=== PATIENT | female | born 1965 | race Caucasian/White ===

== ENCOUNTER 2018-10-27 12:36 | Emergency (ER) | payer MEDICARE, MEDICAID ==
[~2018-10-27] VITALS: Ht 175.3 cm; Wt 100.0 kg
[2018-10-27 16:05] LABS: CLARITY,URINE CLOUDY (Clear); COLOR,URINE AMBER (Yellow); GLUCOSE, URINE NEGATIVE (Neg); KETONES,URINE TRACE mg/dl (Neg); LEUKOCYTE ESTERASE ,URINE SMALL (Neg); NITRITES, URINE POSITIVE (Neg); OCCULT BLOOD,URINE LARGE (Neg); PROTEIN,URINE 100 mg/dl (Neg)
[2018-10-27 16:07] LABS: UA COLLECTION TYPE VOIDED
[2018-10-27 16:11] LABS: BACTERIA,URINE 1+ /HPF (Neg); MUCUS STRANDS NONE SEEN /LPF (Neg); RBC,URINE TNTC /HPF (0-2); SQUAMOUS EPITHELIAL CELL,UR NONE SEEN /LPF (FEW); WBC,URINE 20-30 /HPF (0-4)
[2018-10-27 16:27] LABS: BASOPHILS # (AUTO) 0.1 X10'3 (0-0.2); BASOPHILS % (AUTO) 0.4 % (0-1); EOSINOPHILS # (AUTO) 0.1 X10'3 (0-0.9); EOSINOPHILS % (AUTO) 0.9 % (0-6); HEMATOCRIT 46.3 % (35.0-45.0); HEMOGLOBIN 14.9 g/dl (12.0-16.0); LYMPHOCYTES # (AUTO) 4.4 X10'3 (1.1-4.8); LYMPHOCYTES % (AUTO) 31.1 % (21-51); MEAN CORPUSCULAR HEMOGLOBIN 30.5 PG (27.0-31.0); MEAN CORPUSCULAR HGB CONC 32.1 g/dL (33.0-36.5); MEAN CORPUSCULAR VOLUME 95.3 FL (78-98); MEAN PLATELET VOLUME 7.3 FL (7.4-10.4); MONOCYTES # (AUTO) 0.7 X10'3 (0-0.9); NEUTROPHILS # (AUTO) 8.8 X10'3 (1.8-7.7); NEUTROPHILS % (AUTO) 62.6 % (42-75); PLATELET COUNT 415 X10'3 (140-440); RED BLOOD COUNT 4.86 X10'6 (4.20-5.60); WHITE BLOOD COUNT 14.1 X10'3 (4.5-11.0)
[2018-10-27] MEDS ORDERED: NITR100C PO (16:32)
[2018-10-27 16:43] LABS: ALANINE AMINOTRANSFERASE 32 U/L (12-78); ALBUMIN 3.7 G/DL (3.4-5.0); ALBUMIN/GLOBULIN RATIO 0.9 (1.1-1.5); ALKALINE PHOSPHATASE 119 IU/L (46-116); ANION GAP 14 (8-16); ASPARTATE AMINO TRANSFERASE 27 U/L (10-37); BILIRUBIN,TOTAL 0.5 MG/DL (0.1-1.0); BLOOD UREA NITROGEN 14 MG/DL (7-18); BUN/CREATININE RATIO 20.9 (6.6-38.0); CALCIUM 9.4 MG/DL (8.5-10.1); CHLORIDE 101 MMOL/L (99-107); CREATININE 0.67 MG/DL (0.40-0.90); GLUCOSE 115 MG/DL (70-104); POTASSIUM 3.8 MMOL/L (3.5-5.1); SODIUM 139 MMOL/L (135-145); TOTAL CARBON DIOXIDE 24.4 MMOL/L (24-32); TOTAL PROTEIN 7.6 G/DL (6.4-8.2); eGFR > 90 ML/MIN
[2018-10-27 16:59] VITALS: BP 141/93
== END 2018-10-27 17:00 | disposition home or self-care (01) ==
LOC: ER 12:37
DX: S30.1XXA Contusion of abdominal wall, initial encounter (principal); S20.212A Contusion of left front wall of thorax, initial encounter; S00.12XA Contusion of left eyelid and periocular area, initial encounter; N39.0 Urinary tract infection, site not specified; R31.9 Hematuria, unspecified; Z90.710 Acquired absence of both cervix and uterus; Z88.0 Allergy status to penicillin; Z95.1 Presence of aortocoronary bypass graft; Z91.030 Bee allergy status; Z79.899 Other long term (current) drug therapy; Y04.8XXA Assault by other bodily force, initial encounter; Y93.89 Activity, other specified; Y92.89 Other specified places as the place of occurrence of the external cause; Y99.8 Other external cause status
CPT/HCPCS: 36415; 80053; 81001; 85025; 87077; 87088; 87186; 99283

== ENCOUNTER 2022-01-17 22:34 | Emergency (ER) | payer MEDICARE, MEDICAID ==
[~2022-01-17] VITALS: Ht 180.3 cm; Wt 111.8 kg
[~2022-01-17 22:34] MED LIST: NITR100C PO
[2022-01-17 23:13] LABS: MEAN PLATELET VOLUME 6.7 FL (7.4-10.4); MONOCYTES # (AUTO) 0.5 X10'3 (0-0.9); MONOCYTES % (AUTO) 6.2 % (2-12)
[2022-01-17 23:15] LABS: BASOPHILS # (AUTO) 0.1 X10'3 (0-0.2); BASOPHILS % (AUTO) 0.6 % (0-1); EOSINOPHILS # (AUTO) 0.2 X10'3 (0-0.9); EOSINOPHILS % (AUTO) 3.1 % (0-6); HEMATOCRIT 34.8 % (35.0-45.0); HEMOGLOBIN 11.2 g/dl (12.0-16.0); LYMPHOCYTES # (AUTO) 4.1 X10'3 (1.1-4.8); LYMPHOCYTES % (AUTO) 52.3 % (21-51); MEAN CORPUSCULAR HEMOGLOBIN 28.1 PG (27.0-31.0); MEAN CORPUSCULAR HGB CONC 32.1 g/dL (33.0-36.5); MEAN CORPUSCULAR VOLUME 87.7 FL (78-98); NEUTROPHILS % (AUTO) 37.8 % (42-75); PLATELET COUNT 372 X10'3 (140-440); RED BLOOD COUNT 3.96 X10'6 (4.20-5.60); RED CELL DISTRIBUTION WIDTH 18.2 % (11.5-14.5); WHITE BLOOD COUNT 7.9 X10'3 (4.5-11.0)
[2022-01-17 23:32] LABS: ALANINE AMINOTRANSFERASE 41 U/L (12-78); ALBUMIN 3.2 G/DL (3.4-5.0); ALBUMIN/GLOBULIN RATIO 0.7 (1.1-1.5); ALKALINE PHOSPHATASE 128 IU/L (46-116); ANION GAP 10 (8-16); ASPARTATE AMINO TRANSFERASE 47 U/L (10-37); BILIRUBIN,TOTAL 0.1 MG/DL (0.1-1.0); BLOOD UREA NITROGEN 9 MG/DL (7-18); BUN/CREATININE RATIO 15.8 (6.6-38.0); CALCIUM 8.3 MG/DL (8.5-10.1); CHLORIDE 106 MMOL/L (99-107); CREATININE 0.57 MG/DL (0.40-0.90); ETHANOL 0.159 GM/DL (0.0-0.010); GLUCOSE 151 MG/DL (70-104); POTASSIUM 3.7 MMOL/L (3.5-5.1); SODIUM 140 MMOL/L (135-145); TOTAL CARBON DIOXIDE 24.2 MMOL/L (24-32); TOTAL PROTEIN 7.5 G/DL (6.4-8.2); eGFR > 90 ML/MIN
[2022-01-18 00:16] LABS: ANISOCYTOSIS 2+; PLATELET ESTIMATE NORMAL
[2022-01-18 00:28] LABS: TOTAL CELLS COUNTED 100
--- NOTE | 2022-01-18 01:05 | NUR ---
PT GIVEN PHONE TO CALL TO CHECK ON DAUGHTER. DAUGHTER STATES THAT SHE IS FINE
[2022-01-18 01:35] LABS: URINE AMPHETAMINE SCREEN NEGATIVE (Neg); URINE BARBITUATE SCREEN NEGATIVE (Neg); URINE BENZODIAZEPINES SCREEN NEGATIVE (Neg); URINE CANNABINOID SCREEN POSITIVE (Neg); URINE COCAINE SCREEN NEGATIVE (Neg); URINE METHADONE SCREEN NEGATIVE (Neg); URINE OPIATE SCREEN NEGATIVE (Neg); URINE PHENCYCLIDINE SCREEN NEGATIVE (Neg)
--- NOTE | 2022-01-18 02:15 | NUR ---
PT WALKED TO RESTROOM AND BACK TO ROOM
--- NOTE | 2022-01-18 03:30 | NUR ---
PT WALKED TO RESTROOM AND BACK IN ROOM
--- NOTE | 2022-01-18 05:07 | NUR ---
GAVE PT WATER. PT CALM
--- NOTE | 2022-01-18 05:18 | NUR ---
PT WALKED TO RESTROOM
[2022-01-18] MEDS ORDERED: MONT10TA21 PO (06:32)
[2022-01-18] MEDS ORDERED: TRAZ-251 PO (06:32)
[2022-01-18] MEDS ORDERED: EST1T PO (06:32)
[2022-01-18] MEDS ORDERED: TRAM50TA2 PO (06:32)
[2022-01-18] MEDS ORDERED: CITA20TA28 PO (06:32)
[2022-01-18] MEDS ORDERED: CETI10TA15 PO (06:32)
--- NOTE | 2022-01-18 07:50 | NUR ---
Pt awake and tearful. Upset that she asked for coffee hours ago and never got any. Concerned about the diabetic ulcer on her foot (bandage clean, dry and intact), diabetic and hungry.
--- NOTE | 2022-01-18 07:57 | NUR ---
Safe tray carb controlled diet ordered.
--- NOTE | 2022-01-18 09:26 | NUR ---
Breakfast to bedside. Pt states she doesn't take pills or insulin- is diet controlled Diabetic. Asking for morning meds. notified.
--- NOTE | 2022-01-18 09:27 | NUR ---
Pt calm and cooperative, no issues.
--- NOTE | 2022-01-18 10:05 | NUR ---
Patient ambulated to bed #26 from the main ER. Pt was tearful stating "I don't even know why I am here." "They are tring to find my medication."
[2022-01-18] MEDS: citalopram 20mg tablet PO SCH (10:43)
[2022-01-18] MEDS: cetirizine 10mg tablet PO SCH (10:43)
[2022-01-18] MEDS: montelukast 10mg tablet PO SCH (10:43)
[2022-01-18] MEDS: estradiol 1mg tablet PO SCH (10:43)
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
--- NOTE | 2022-01-18 11:49 | NUR ---
Spoke with Leonela at Dr. Nunez. Pt's right foot dressing is to be changed at least QOD. They use acti coat and prophor. She will fax over order. Placed order for wound consultation. Dr. Cunningham notified.
--- NOTE | 2022-01-18 12:31 | NUR ---
RECEIVED ORDER FROM DR RIGGS'S OFFICE. PLACED ORDERS IN CHART.
--- NOTE | 2022-01-18 12:31 | NUR ---
Left message with Wound care.
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
--- NOTE | 2022-01-18 15:02 | NUR ---
Lacy sim in [facility] - 01/18/22 at 1503 by PATRICIA SPOKE WITH OUTPATIENT WOUND CARE CLINIC, INPATIENT WOUND CARE NURSE WILL BE ABLE TO SEE PATIENT TOMORROW 5*/1
--- NOTE | 2022-01-18 15:04 | NUR ---
SPOKE WITH OUTPATIENT WOUND CARE CLINIC, INPATIENT WOUND CARE NURSE WILL BE ABLE TO SEE PATIENT TOMORROW 01/19.
--- NOTE | 2022-01-18 15:30 | NUR ---
Pt was able to call her daughter. Pt said she thought she wasn't able to use a phone "talking to her was a game changer for me." Pt presents a little brighter.
--- NOTE | 2022-01-18 20:01 | NUR ---
Pt lying in bed supine with eyes open. Denies any needs at this time. Bed in lowest position.
[2022-01-18] MEDS: traZODone 50mg tablet PO SCH (20:09)
[2022-01-18] MEDS: nitrofurantoin macrocrystal 100mg capsule PO SCH (20:10)
[2022-01-18] MEDS ORDERED: traMADol 50MG tablet PO ONE (21:00)
--- NOTE | 2022-01-18 21:02 | NUR ---
Pt lying in semi-romero's position in bed with eyes open. Respirations 17. Bed in lowest position.
--- NOTE | 2022-01-18 23:09 | NUR ---
Pt turned to right lateral side with eyes closed. Respirations 16. Bed in lowest position.
--- NOTE | 2022-01-19 01:07 | NUR ---
Pt turned to right lateral side with eyes closed, appears to be sleeping. Respirations 14. Bed in lowest position. No acute distress noted.
--- NOTE | 2022-01-19 03:03 | NUR ---
Pt turned to left lateral side with eyes closed, appears to be sleeping. Respirations 13 and snoring noted. No distress apparent.
--- NOTE | 2022-01-19 05:04 | NUR ---
Pt turned to left lateral side with eyes closed, pt appears to be sleeping. Respirations 14 and unlabored. Bed in lowest position.
[2022-01-19] MEDS: cetirizine 10mg tablet PO SCH (07:39)
[2022-01-19] MEDS: montelukast 10mg tablet PO SCH (07:39)
[2022-01-19] MEDS: citalopram 20mg tablet PO SCH (07:39)
[2022-01-19] MEDS: estradiol 1mg tablet PO SCH (07:39)
[2022-01-19] MEDS: nitrofurantoin macrocrystal 100mg capsule PO SCH ×2 (07:39→19:56)
--- NOTE | 2022-01-19 08:09 | NUR ---
pt awake and up to bathroom. morning medications given without issue. pt denies any SI/SH/HI/AVH and reports feeling "good" today as pt spoke with her daugher and feels reassured that "everything is working out. we have a plan." pt aware that wound care should be following up with her today for the wound on her left foot. pt denies any anxiety or depression at this time. pt has calm, cooperative affect and is pleasant during conversation. pt appears hopeful and content at this time
--- NOTE | 2022-01-19 10:49 | NUR ---
pt up to bathroom with standby assistance. pt then returned back to bed without issue and is now laying down "to rest"
--- NOTE | 2022-01-19 10:50 | NUR ---
pt sitting in bed reading. called wound care who states they plan to see her later today for the wound on her foot. pt updated. no concerns at this time
--- NOTE | 2022-01-19 16:20 | NUR ---
wound care at bedside evaluating pt foot. communication technician called for a pressure boot and bill from ortho will be here in morning to provide boot for patient.
--- NOTE | 2022-01-19 16:42 | NUR ---
WOC: Wound care was asked to see patient regarding wound to left foot. Patient see's a field pipelines supervisor on the outpatient setting for wound care. See WOC assessment in interventions on chart for full assessment. Nursing to do dressing changes QOD, supplies given to nursing (acticoat) RECOMMEND: 1. Daily bathing with no rinse skin cleanser. 2. Cream/Lotion to be applied to skin after bathing. 3. Marcia care Q shift and prn soiling followed by with Barrier Cream. 4. Turn patient Q 1-2 hrs and reposition with pillows. 5. Float heels to offload pressure. 6. Wound care to left plantar foot. Clean with saline, apply piece of acticot to wound bed, cover with gauze, and then kerlix roll. Secure with medipore tape. Dressings to be changed by nursing QOD. Patient needs to follow up with her doctor when discharged.
--- NOTE | 2022-01-19 18:41 | NUR ---
Pt sitting up in bed reading book. Pt denies any needs at this time. Bed in lowest position.
[2022-01-19] MEDS: traZODone 50mg tablet PO SCH (19:56)
--- NOTE | 2022-01-19 20:10 | NUR ---
Patient sitting up in bed, RN administered PM medications. Patient tolerated well. Pt denies further needs. Bed in lowest position.
--- NOTE | 2022-01-19 22:05 | NUR ---
Pt turned to left lateral side with eyes closed, appears to be sleeping. Respirations 15. Bed in lowest position.
--- NOTE | 2022-01-20 00:49 | NUR ---
Pt turned to left lateral side with eyes closed, appears to be sleeping. Respirations 15. Bed in lowest position and bedside table within reach.
--- NOTE | 2022-01-20 02:40 | NUR ---
Pt sitting up in bed reading book. RN provided ice water. Pt denies further needs.
--- NOTE | 2022-01-20 04:12 | NUR ---
Pt turned to left lateral side, appears to be sleeping. Respirations 14.
[2022-01-20] MEDS: nitrofurantoin macrocrystal 100mg capsule PO SCH ×2 (08:00→20:14)
[2022-01-20] MEDS: estradiol 1mg tablet PO SCH (08:59)
[2022-01-20] MEDS: montelukast 10mg tablet PO SCH (08:59)
[2022-01-20] MEDS: cetirizine 10mg tablet PO SCH (08:59)
[2022-01-20] MEDS: citalopram 20mg tablet PO SCH (08:59)
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
[2022-01-20] MEDS: traZODone 50mg tablet PO SCH (20:14)
--- NOTE | 2022-01-20 22:03 | NUR ---
Pt sitting up in bed reading.
--- NOTE | 2022-01-21 00:06 | NUR ---
Pt appears to be sleeping.
--- NOTE | 2022-01-21 02:07 | NUR ---
Pt appears to be sleeping.
--- NOTE | 2022-01-21 04:41 | NUR ---
Pt up to the BR, fresh water pitcher given.
[2022-01-21 05:44] VITALS: BP 165/89
--- NOTE | 2022-01-21 07:14 | NUR ---
PT SITTING UP AT SIDE OF BED,READING BOOK.
--- NOTE | 2022-01-21 07:57 | NUR ---
PT STILL READING THE BOOK ,CORRINE ANY CONCERN .NO SIGN OF DISTRESS NOTED.
--- NOTE | 2022-01-21 08:19 | NUR ---
eating her breakfast at this time.
[2022-01-21] MEDS: montelukast 10mg tablet PO SCH (08:34)
[2022-01-21] MEDS: estradiol 1mg tablet PO SCH (08:34)
[2022-01-21] MEDS: citalopram 20mg tablet PO SCH (08:34)
[2022-01-21] MEDS: cetirizine 10mg tablet PO SCH (08:34)
[2022-01-21] MEDS: nitrofurantoin macrocrystal 100mg capsule PO SCH (08:35)
--- NOTE | 2022-01-21 09:24 | NUR ---
UP TO USE RESTROOM AT THIS TIME.
--- NOTE | 2022-01-21 10:01 | NUR ---
SITTING UP IN BED READING .
--- NOTE | 2022-01-21 10:15 | NUR ---
ICE WATER PROVIDED PER PT REQUEST.
--- NOTE | 2022-01-21 11:58 | NUR ---
[facility] EVAL AT BEDSIDE.
== END 2022-01-21 13:05 | disposition home or self-care (01) ==
LOC: ER 22:34
DX: R45.851 Suicidal ideations (principal); Z20.822 Contact with and (suspected) exposure to COVID-19; J44.9 Chronic obstructive pulmonary disease, unspecified; E11.9 Type 2 diabetes mellitus without complications; Z88.0 Allergy status to penicillin; Z91.030 Bee allergy status; Z79.899 Other long term (current) drug therapy
CPT/HCPCS: 36415; 80053; 80305; 80320; 85007; 85025; 87635; 99285; C9803